=== PATIENT | male | born 1990 | race Asian ===

== ENCOUNTER → 2016-11-24 | Outpatient (CLI) | payer OTHER ==
[~2016-11-24] VITALS: Ht 167.6 cm; Wt 76.8 kg
[~2016-11-24] MED LIST: NS 1,000 ML IV SCH
--- NOTE | 2016-11-24 08:37 | ROOR ---
Patient Name: Jemal Desir Procedure Date: 11/24/2016 8:11 AM Date of : 1990 Age: 26 Room: [facility] Gender: Male Note Status: Finalized Procedure: Colonoscopy to Cecum + ileoscopy Indications: Rectal bleeding Providers: Kapil Llanos MD Referring MD: DELROY ALAN MD Requesting Provider: Medicines: Monitored Anesthesia Care Complications: No immediate complications. Procedure: Pre-Anesthesia Assessment: - The heart rate, respiratory rate, oxygen saturations, blood pressure, adequacy of pulmonary ventilation, and response to care were monitored throughout the procedure. The Colonoscope was introduced through the anus and advanced to the cecum, identified by appendiceal orifice and ileocecal valve. The colonoscopy was performed without difficulty. The patient tolerated the procedure well. The quality of the bowel preparation was excellent. Findings: The perianal and digital rectal examinations were normal. Non-bleeding internal hemorrhoids were found during retroflexion. The hemorrhoids were small and Grade I (internal hemorrhoids that do not prolapse). No additional abnormalities were found on retroflexion. No other significant abnormalities were identified in a careful examination of the remainder of the colon. The terminal ileum appeared normal. The exam was otherwise without abnormality. Impression: - Non-bleeding internal hemorrhoids. - The examined portion of the ileum was normal. - The examination was otherwise normal. - No specimens collected. - Otherwise normal to terminal ileum. - Normal digital-rectal examination. Recommendation: - Patient has a contact number available for emergencies. The signs and symptoms of potential delayed complications were discussed with the patient. Return to normal activities tomorrow. Written discharge instructions were provided to the patient. - High fiber diet. - Discharge patient to home. - Continue present medications. - Repeat colonoscopy at age 51 for screening purposes. - Return to referring physician. - The findings and recommendations were discussed with the patient's family. Kapil Llanos MD Kapil Llanos MD 11/24/2016 8:37:25 AM This report has been signed electronically. Number of Addenda: 0 Note Initiated On: 11/24/2016 8:11 AM Estimated Blood Loss: Estimated blood loss: none.
[2016-11-24 08:55] VITALS: BP 133/83
== END ==
LOC: M OPP 07:06
PROVIDERS: ATTEND Internal Medicine Gastroenterology
DX: K62.5 Hemorrhage of anus and rectum (principal); K64.0 First degree hemorrhoids; R19.4 Change in bowel habit

== ENCOUNTER 2017-09-30 13:52 | Emergency (ER) | payer OTHER ==
[~2017-09-30] VITALS: Ht 167.6 cm; Wt 77.0 kg
[2017-09-30] MEDS ORDERED: AMOX500C PO (13:59)
[2017-09-30 14:46] LABS: MEAN CORPUSCULAR HEMOGLOBIN 29.4 pg (27.0-33.0); MEAN CORPUSCULAR HGB CONC 33.8 g/dl (32.0-36.5); MEAN CORPUSCULAR VOLUME 87.2 fl (80.0-96.0); PLATELET COUNT, AUTOMATED 220 10^3/uL (150-450); RED CELL DISTRIBUTION WIDTH 12.3 % (11.5-14.5); WHITE BLOOD COUNT 8.6 10^3/uL (4.0-10.0)
[2017-09-30 15:16] LABS: METHADONE URINE NEGATIVE (NEGATIVE)
[2017-09-30 15:29] LABS: ALBUMIN 4.1 GM/DL (3.2-5.2); ALKALINE PHOSPHATASE 65 U/L (45-117); ALT/SGPT 54 U/L (12-78); ANION GAP 10 MEQ/L (8-16); AST/SGOT 24 U/L (7-37); BILIRUBIN,DIRECT 0.1 MG/DL (0.0-0.2); BILIRUBIN,TOTAL 0.4 MG/DL (0.2-1.0); BLOOD UREA NITROGEN 16 MG/DL (7-18); CALCIUM LEVEL 9.1 MG/DL (8.5-10.1); CARBON DIOXIDE LEVEL 26 MEQ/L (21-32); CHLORIDE LEVEL 104 MEQ/L (98-107); CREATININE FOR GFR 0.95 MG/DL (0.70-1.30); GLOMERULAR FILTRATION RATE > 60.0 (>60); GLUCOSE, FASTING 98 MG/DL (70-105); SODIUM LEVEL 140 MEQ/L (136-145); TOTAL PROTEIN 8.2 GM/DL (6.4-8.2)
[2017-09-30 17:57] VITALS: BP 127/71
== END 2017-09-30 18:04 | disposition home or self-care (01) ==
LOC: M ED 13:52
DX: F43.20 Adjustment disorder, unspecified (principal); J02.0 Streptococcal pharyngitis; Z79.2 Long term (current) use of antibiotics
CPT/HCPCS: 80048; 80076; 80307; 84443; 85027; 99284; G0480